=== PATIENT | female | born 1970 | race American Indian/Alaskan Native ===

== ENCOUNTER 2018-06-20 19:13 | Emergency (ER) | payer OTHER ==
[2018-06-20] MEDS ORDERED: CATAPRES ONE (20:10)
[2018-06-20] MEDS ORDERED: CATAPRES PO ONE (20:22)
[2018-06-20 23:40] VITALS: BP 149/131
[2018-06-21] MEDS ORDERED: MOTRIN PO ONE (00:17)
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
--- NOTE | 2018-06-21 16:18 | XRay Report ---
FINAL REPORT EXAM: XR KNEE 3V RT HISTORY: trauma, pain TECHNIQUE: Frontal, lateral and oblique views right knee Comparison: None FINDINGS: There is no evidence of fracture or subluxation. There is degenerative change of the tibia femoral joint with joint space loss of the medial compartment with subchondral sclerosis. There is degenerative change of the patellofemoral joint with joint space loss and osteophyte formation. The soft tissues are unremarkable. IMPRESSION: 1. No evidence of fracture or subluxation. 2. 

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
== END 2018-06-21 00:50 | disposition home or self-care (01) ==
LOC: ED 19:13
DX: S16.1XXA Strain of muscle, fascia and tendon at neck level, initial encounter (principal); S86.911A Strain of unspecified muscle(s) and tendon(s) at lower leg level, right leg, initial encounter; I10 Essential (primary) hypertension; E03.9 Hypothyroidism, unspecified; F17.200 Nicotine dependence, unspecified, uncomplicated; X58.XXXA Exposure to other specified factors, initial encounter; Y93.89 Activity, other specified; Y92.89 Other specified places as the place of occurrence of the external cause; Y99.8 Other external cause status
CPT/HCPCS: 72040; 99282